=== PATIENT | female | born 1985 | race Caucasian/White ===

== ENCOUNTER 2018-04-16 17:11 | Emergency (ER) | payer SELFPAY ==
[~2018-04-16] VITALS: Ht 167.6 cm; Wt 50.4 kg
[2018-04-16 17:29] VITALS: BP 105/69
[2018-04-16] MEDS ORDERED: MECL-111 PO (17:33)
[2018-04-16] MEDS ORDERED: TOPI25TA42 PO (17:33)
[2018-04-16] MEDS ORDERED: IBUPROFEN 100 MG/5 ML SUSPENSION UDCUP PO ONE (19:45)
== END 2018-04-16 20:11 | disposition home or self-care (01) ==
LOC: EMS 17:12
DX: R07.89 Other chest pain (principal); R23.3 Spontaneous ecchymoses
CPT/HCPCS: 93005

== ENCOUNTER 2018-11-20 17:50 | Emergency (ER) | payer OTHER ==
[~2018-11-20] VITALS: Ht 167.6 cm; Wt 50.0 kg
[~2018-11-20 17:50] MED LIST: MECL-111 PO; TOPI25TA42 PO
[2018-11-20] MEDS ORDERED: ERGO1TAB28 PO (18:26)
[2018-11-20 19:35] VITALS: BP 119/68
== END 2018-11-20 20:04 | disposition home or self-care (01) ==
LOC: EMS 17:50
DX: L50.9 Urticaria, unspecified (principal); G43.909 Migraine, unspecified, not intractable, without status migrainosus